=== PATIENT | male | born 1965 | race Caucasian/White ===

== ENCOUNTER 2017-08-19 06:33 | Day surgery (SDC) | payer BC ==
[~2017-08-19] VITALS: Ht 188 cm; Wt 96.1 kg
[~2017-08-19 06:33] MED LIST: CEPHALEXIN500 M1 PO; NO HOME MEDICATIONS
[2017-08-19 07:06] VITALS: BP 141/90; PULSE 75; TEMP 97.7
[2017-08-19 10:40] VITALS: BP 113/72; PULSE 69; TEMP 97.9
[2017-08-19 10:55] VITALS: BP 108/69; PULSE 64
[2017-08-19 11:10] VITALS: BP 116/75; PULSE 70
[2017-08-19 11:25] VITALS: BP 116/75; PULSE 61
[2017-08-19] MEDS ORDERED: ROXICODONE 55 MG/TAB PO (11:30)
== END 2017-08-19 12:15 | disposition home or self-care (01) ==
LOC: SDCO 06:33
DX: K40.90 Unilateral inguinal hernia, without obstruction or gangrene, not specified as recurrent (principal); Z85.828 Personal history of other malignant neoplasm of skin
CPT/HCPCS: A4314; C1781; J0690; J1100; J1885; J2405; J2704; J3010; J7120